=== PATIENT | female | born 1945 | race Hispanic/Latino ===

== ENCOUNTER 2016-10-11 11:22 | Day surgery (SDC) | payer MEDICARE ==
[~2016-10-11 11:22] MED LIST: AK-Dilate ONE; IOPIDINE ONE; IOPIDINE OS ONE; MYDRIACYL ONE; MYDRIACYL OS ONE; NEOFRIN ONE; NEOFRIN OS ONE
[2016-10-11] MEDS ORDERED: NEOFRIN OS ONE (11:50)
[2016-10-11] MEDS ORDERED: IOPIDINE OS ONE (11:50)
[2016-10-11] MEDS ORDERED: MYDRIACYL OS ONE (11:50)
[2016-10-11 12:02] VITALS: BP 100/70
== END 2016-10-11 12:12 | disposition home or self-care (01) ==
LOC: OR 11:22
PROVIDERS: ATTEND Specialist
DX: E11.36 Type 2 diabetes mellitus with diabetic cataract (principal); H26.492 Other secondary cataract, left eye; I10 Essential (primary) hypertension; Z79.899 Other long term (current) drug therapy
CPT/HCPCS: 82962

== ENCOUNTER 2016-10-25 11:19 | Day surgery (SDC) | payer MEDICARE ==
[2016-10-25] MEDS ORDERED: IOPIDINE ONE (11:46)
[2016-10-25] MEDS ORDERED: MYDRIACYL ONE (11:46)
[2016-10-25] MEDS ORDERED: NEOFRIN ONE (11:46)
[2016-10-25 11:53] VITALS: BP 120/60
[2016-10-25] MEDS ORDERED: MYDRIACYL OD ONE (12:10)
[2016-10-25] MEDS ORDERED: NEOFRIN OD ONE (12:10)
[2016-10-25] MEDS ORDERED: IOPIDINE OD ONE (12:10)
== END 2016-10-25 11:20 | disposition home or self-care (01) ==
LOC: OR 11:19
PROVIDERS: ATTEND Specialist
DX: E11.36 Type 2 diabetes mellitus with diabetic cataract (principal); H26.491 Other secondary cataract, right eye; I10 Essential (primary) hypertension; Z79.899 Other long term (current) drug therapy
CPT/HCPCS: 82962